=== PATIENT | male | born 1990 | race African-American/Black ===

== ENCOUNTER 2019-12-07 11:50 | Emergency (ER) | payer OTHER ==
[~2019-12-07] VITALS: Ht 177.8 cm; Wt 86.0 kg
[2019-12-07] MEDS ORDERED: IBUPROFEN 800MG TABLET PO ONE (13:00)
[2019-12-07] MEDS ORDERED: CEPHALEXIN 250MG CAPSULE PO ONE (13:00)
[2019-12-07 13:10] VITALS: BP 132/80
== END 2019-12-07 13:10 | disposition home or self-care (01) ==
LOC: ER 12:50
DX: J06.9 Acute upper respiratory infection, unspecified (principal)
CPT/HCPCS: 71045; 99283